=== PATIENT | male | born 1975 | race Caucasian/White ===

== ENCOUNTER → 2020-11-02 | Outpatient (CLI) | payer OTHER ==
[~2020-11-02] MED LIST: ASPIRIN EC81 MG PO; AZELASTINE 0.05% EYEBOTH; CELEBREX200 MG PO; CYMBALTA60 MG PO; DICLOFENAC GEL 1% TOP; GABAPENTIN300 MG PO; HYDROCODON-ACE1 EAC6 PO; IBU800 MG PO; OXYCODONE IR PO; ZANAFLEX4 MG PO; ZOFRAN 4 MG TAB4 MG PO
== END ==
LOC: LAB 12:21
DX: M10.9 Gout, unspecified (principal)
CPT/HCPCS: 36415; 84550

== ENCOUNTER 2020-12-03 14:05 | Emergency (ER) | payer OTHER ==
[2020-12-04 06:10] LABS: HIV SCREEN 4TH GENERATION WRFX Non Reactive (Non Reactive)
[2020-12-04 09:13] LABS: HBSAG SCREEN Negative (Negative); HEP A AB, IGM Negative (Negative); HEP B CORE AB, IGM Negative (Negative); HEP C VIRUS AB <0.1 (0.0-0.9)
== END 2020-12-03 15:13 | disposition home or self-care (01) ==
LOC: ER1 14:05
PROVIDERS: Physician Assistant
DX: Z77.21 Contact with and (suspected) exposure to potentially hazardous body fluids (principal); W46.1XXA Contact with contaminated hypodermic needle, initial encounter; Z23 Encounter for immunization
CPT/HCPCS: 80074; 87389; 90471; 90715; 99283